=== PATIENT | male | born 1975 | race Hispanic/Latino ===

== ENCOUNTER 2018-04-17 15:08 | Inpatient (IN) | payer BC, OTHER ==
--- NOTE | 2018-04-17 15:48 | ED PDOC ---
Arrival/HPI - General Chief Complaint: Lower Extremity Problem/Injury Historian: Patient - History of Present Illness Narrative History of Present Illness (Text): 04/17/18 15:48 42 year old male whose past medical history includes heart surgery for water around the heart, presents the emergency department complaining of left ankle pain prior to arrival. Patient states he was walking down his driveway when he slipped on ice and twisted his left foot. He notes associated swelling to the ankle. He denies fevers, chills, headache, dizziness, chest pain, shortness of breath, dyspnea on exertion, cough, abdominal pain, nausea, vomiting, diarrhea, back pain, neck pain, or any other complaint. Time/Duration: 1-3 hours Symptom Onset: Gradual Symptom Course: Unchanged Activities at Onset: Light Context: Slipped Past Medical History - Provider Review Nursing Documentation Reviewed: Yes - Infectious Disease Hx of Infectious Diseases: None - Psychiatric Hx Substance Use: No - Surgical History Other/Comment: Buttocks sx for infection. heart sx for water around the heart. - Anesthesia Hx Anesthesia: Yes Hx Anesthesia Reactions: No Family/Social History - Physician Review Nursing Documentation Reviewed: Yes Family/Social History: No Known Family HX Smoking Status: Never Smoked Hx Alcohol Use: No Hx Substance Use: No Allergies/Home Meds Allergies/Adverse Reactions: Allergies No Known Allergies Allergy (Verified 11/24/14 23:28) Review of Systems - Physician Review All systems were reviewed & negative as marked: Yes - Review of Systems Constitutional: absent: Fevers Eyes: absent: Vision Changes Respiratory: absent: SOB, Cough Cardiovascular: absent: Chest Pain Gastrointestinal: absent: Abdominal Pain, Diarrhea, Nausea, Vomiting Musculoskeletal: Other (left ankle pain and swelling). absent: Back Pain, Neck Pain Skin: absent: Rash, Pruritis Physical Exam Vital Signs Reviewed: Yes Vital Signs Temp Pulse Resp BP Pulse Ox 04/17/18 15:35 98.2 F 86 18 181/104 H 100 Temperature: Afebrile Blood Pressure: Hypertensive Pulse: Regular Respiratory Rate: Normal Appearance: Positive for: Well-Appearing, Non-Toxic, Comfortable Pain Distress: None Mental Status: Positive for: Alert and Oriented X 3 - Systems Exam Head: Present: Atraumatic, Normocephalic Pupils: Present: PERRL Extroacular Muscles: Present: EOMI Conjunctiva: Present: Normal Mouth: Present: Moist Mucous Membranes Neck: Present: Normal Range of Motion Respiratory/Chest: Present: Clear to Auscultation, Good Air Exchange. No: Respiratory Distress, Accessory Muscle Use Cardiovascular: Present: Regular Rate and Rhythm, Normal S1, S2. No: Murmurs Abdomen: No: Tenderness, Distention, Peritoneal Signs Back: Present: Normal Inspection Upper Extremity: Present: Normal Inspection. No: Cyanosis, Edema Lower Extremity: Present: NORMAL PULSES (dorsal pedis and posterior tibial pulses intact ), Normal ROM (no pain with dorsal flecion or platar flexion, able to wiggle toes ), Swelling (around the left ankle), Other (no lesions). No: Erythema Neurological: Present: GCS=15, CN II-XII Intact, Speech Normal Skin: Present: Warm, Dry, Normal Color. No: Rashes Psychiatric: Present: Alert, Oriented x 3, Normal Insight, Normal Concentration Medical Decision Making ED Course and Treatment: 04/17/18 15:53 Impression: 42 year old male who presents to the complaining of left ankle pain. Differential Diagnosis included but are not limited to: fracture dislocation sprain Plan: --Labs --CXR --EKG -- Toradol -- Left ankle X-ray -- Reassess and disposition Prior Visits: Notes and results from previous visits were reviewed. Progress Notes: 04/17/18 17:[address] Burgos(orthopedic surgery) who states patient should have be reduced and splinted. He will go to the OR in 24-48 hours for surgical pinning. He requests for patient to be placed in the ortho room. Patient updated on findings and amenable to staying the hospital. Call placed to Dr. Thorne(hospitalist). 04/17/18 18:[address] Thorne who accepts patient onto her service. Dr. Burgos at the bedside who requests consent for moderate sedation while he attempts to reduce the joint. Patient's mother signs consent form is agreeable to procedure. - RAD Interpretation Radiology Orders: 04/17/18 15:47 ANKLE LEFT 3 VIEWS ROUTINE [RAD] Stat - Medication Orders Current Medication Orders: Ketorolac Tromethamine (Toradol) 60 mg IM STAT STA Stop: 04/17/18 15:48 - Scribe Statement The provider has reviewed the documentation as recorded by the Tyree Mcfarlane Provider Scribe Attestation: All medical record entries made by the Scribe were at my direction and personally dictated by me. I have reviewed the chart and agree that the record accurately reflects my personal performance of the history, physical exam, medical decision making, and the department course for this patient. I have also personally directed, reviewed, and agree with the discharge instructions and disposition. Disposition/Present on Arrival - Present on Arrival Any Indicators Present on Arrival: No History of DVT/PE: No History of Uncontrolled Diabetes: No Urinary Catheter: No History of Decub. Ulcer: No History Surgical Site Infection Following: None - Disposition Have Diagnosis and Disposition been Completed?: Yes Diagnosis: Trimalleolar fracture Disposition: HOSPITALIZED Disposition Time: 18:19 Patient Plan: Admission Condition: FAIR Forms: [employer] ([employer])
--- NOTE | 2018-04-17 16:52 | RAD ---
Date of service: 04/17/2018 PROCEDURE: Left ankle three views HISTORY: ankle swelling COMPARISON: TECHNIQUE: Three views FINDINGS: There is a comminuted displaced trimalleolar fracture dislocation. There is a completely displaced and overlapping oblique fracture of the lateral malleolus. There is a displaced transverse fracture of the medial malleolus. There is a minimally displaced fracture of the posterior malleolus. There is complete dislocation of the ankle joint. The talar dome is intact IMPRESSION: As above
[2018-04-17] MEDS ORDERED: Morphine 4 mg/ml ISec IVP STA (17:57)
[2018-04-17] MEDS ORDERED: Propranolol 1 mg/mL Inj IV ONE (17:59)
[2018-04-17] MEDS ORDERED: Propofol 10 mg/ml Inj (20 ML) IVP ONE (18:12)
[2018-04-17 18:36] LABS: BASO # 0.06 K/mm3 (0.0-2.0); BASO % 0.4 % (0.0-3.0); EOS # 0.2 (0.0-0.7); HEMOGLOBIN 15.6 g/dL (14.0-18.0); LYMPH # 3.8 (1.2-3.4); LYMPH % 22.4 % (22.0-35.0); MEAN CELL VOLUME 86.2 fl (80.0-105.0); MEAN CORPUSCULAR HEMOGLOBIN 28.8 pg (25.0-35.0); MEAN CORPUSCULAR HGB CONC 33.4 g/dl (31.0-37.0); MEAN PLATELET VOLUME 9.1 fl (7.0-11.0); MONO # 0.7 (0.1-0.6); MONO % 4.1 % (1.0-6.0); RBC 5.42 10^6/uL (3.5-6.1); RED CELL DISTRIBUTION WIDTH 13.4 % (11.5-14.5); WHITE BLOOD COUNT 16.7 10^3/uL (4.5-11.0)
[2018-04-17 18:47] LABS: ALB/GLOB RATIO 1.3 (1.1-1.8); ALBUMIN 4.7 g/dL (3.0-4.8); ALT/SGPT 52 U/L (7-56); AST/SGOT 56 U/L (17-59); BLOOD UREA NITROGEN 17 mg/dL (7-21); CALCIUM 9.6 mg/dL (8.4-10.5); GFR NON-AFRICAN AMERICAN > 60
[2018-04-17 18:48] LABS: INR 0.99; PARTIAL THROMBOPLASTIN TIME 33.1 Seconds (26.9-38.3)
[2018-04-17 18:55] LABS: TROPONIN I 0.09 ng/mL
--- NOTE | 2018-04-17 19:05 | CP.PCM.HP ---
<Yashira Davey - Last Filed: 04/17/18 21:39> History of Present Illness - History of Present Illness History of Present Illness: Resident History & Physical for Hospitalist Service Patient is a 42 year old male with no significant past medical history presenting with intermittent left lower extremity pain s/p fall this afternoon. Patient states that he slipped on ice while walking in his driveway causing him to twist his left foot. He denies any loss of consciousness or trauma to any other regions. Patient states that he has been unable to weight on his left low er extremity. Pain is described as a throbbing ache localized to his medial malleolus with associated swelling noted. Denies fevers, chills, headache, dizziness, chest pain, shortness of breath, abdominal pain, diarrhea, dysuria. PMH: as above PSH: pericardiocentesis (2009), back abscess drainage SHx: denies alcohol, tobacco, illicit drug use FHx: mother (hypertension) Allergies: NKDA Home meds: none PMD: none Present on Admission - Present on Admission Any Indicators Present on Admission: No Review of Systems - Review of Systems All systems: reviewed and no additional remarkable complaints except (as stated in HPI) Past Patient History - Infectious Disease Hx of Infectious Diseases: None - Past Social History Smoking Status: Never Smoked - PSYCHIATRIC Hx Substance Use: No - SURGICAL HISTORY Other/Comment: Buttocks sx for infection. heart sx for water around the heart. - ANESTHESIA Hx Anesthesia: Yes Hx Anesthesia Reactions: No Meds Allergies/Adverse Reactions: Allergies Allergy/AdvReac Type Severity Reaction Status Date / Time No Known Allergies Allergy Verified 11/24/14 23:28 Physical Exam - Constitutional Appears: Non-toxic, No Acute Distress - Head Exam Head Exam: ATRAUMATIC, NORMOCEPHALIC - Eye Exam Eye Exam: EOMI, Normal appearance, PERRL - ENT Exam ENT Exam: Mucous Membranes Moist - Neck Exam Neck exam: Positive for: Full Rom - Respiratory Exam Respiratory Exam: Clear to Auscultation Bilateral, NORMAL BREATHING PATTERN. absent: Rales, Rhonchi, Wheezes, Respiratory Distress - Cardiovascular Exam Cardiovascular Exam: REGULAR RHYTHM, +S1, +S2 - GI/Abdominal Exam GI & Abdominal Exam: Normal Bowel Sounds, Soft. absent: Distended, Firm, Guarding, Rebound, Tenderness - Extremities Exam Extremities exam: Positive for: normal capillary refill, tenderness, pedal pulses present Additional comments: LLE motor strength and sensation intact - Neurological Exam Neurological exam: Alert, CN II-XII Intact, Oriented x3 - Psychiatric Exam Psychiatric exam: Normal Affect, Normal Mood - Skin Skin Exam: Dry, Intact Results - Vital Signs Recent Vital Signs: Last Vital Signs Temp 98.2 F 04/17/18 15:35 Pulse 86 04/17/18 15:35 Resp 18 04/17/18 15:35 BP 181/104 H 04/17/18 15:35 Pulse Ox 100 04/17/18 15:35 - Labs Result Diagrams: 04/17/18 20:50 04/17/18 18:25 Labs: Laboratory Results - last 24 hr 04/17/18 04/17/18 04/17/18 18:25 18:25 18:25 WBC 16.7 H RBC 5.42 Hgb 15.6 Hct 46.7 MCV 86.2 MCH 28.8 MCHC 33.4 RDW 13.4 Plt Count 365 MPV 9.1 Neut % (Auto) 72.1 H Lymph % (Auto) 22.4 [place] % (Auto) 4.1 Eos % (Auto) 1.0 L Baso % (Auto) 0.4 Lymph # (Auto) 3.8 H [place] # (Auto) 0.7 H Eos # (Auto) 0.2 Baso # (Auto) 0.06 Absolute Neuts (auto) 12.08 H PT 11.0 INR 0.99 APTT 33.1 Sodium 140 Potassium 4.3 Chloride 106 Carbon Dioxide 22 Anion Gap 16 BUN 17 Creatinine 0.7 L Est GFR ( Amer) > 60 Est GFR (Non-Af Amer) > 60 Random Glucose 108 Calcium 9.6 Magnesium 2.3 H Total Bilirubin 0.3 AST 56 ALT 52 Alkaline Phosphatase 139 H Troponin I 0.09 Total Protein 8.5 H Albumin 4.7 Globulin 3.8 Albumin/Globulin Ratio 1.3 Assessment & Plan - Assessment and Plan (Free Text) Assessment: Patient is a 42 year old male with no significant past medical history presenting with intermittent left lower extremity pain s/p fall this afternoon, found to have trimalleolar fracture. Plan: Trimalleolar fracture - x-ray shows comminuted displaced trimalleolar fracture - type and cross - orthopedic surgery consulted - Toradol PRN for pain - NS @ 100 ccs/hr - NPO - CXR - EKG PPX - Protonix Case discussed with Dr. Nathaniel Davey PGY-1 - Date & Time Date: 04/17/18 Time: 19:05 <Clayton Armstrong - Last Filed: 04/18/18 08:01> Results - Vital Signs Recent Vital Signs: Last Vital Signs Temp 98.1 F 04/18/18 06:08 Pulse 84 04/18/18 06:08 Resp 20 04/18/18 06:08 BP 162/101 H 04/18/18 06:08 Pulse Ox 98 04/18/18 06:08 - Labs Result Diagrams: 04/18/18 00:45 04/18/18 07:00 Labs: Laboratory Results - last 24 hr 04/17/18 04/17/18 04/17/18 18:25 18:25 18:25 WBC 16.7 H RBC 5.42 Hgb 15.6 Hct 46.7 MCV 86.2 MCH 28.8 MCHC 33.4 RDW 13.4 Plt Count 365 MPV 9.1 Neut % (Auto) 72.1 H Lymph % (Auto) 22.4 [place] % (Auto) 4.1 Eos % (Auto) 1.0 L Baso % (Auto) 0.4 Lymph # (Auto) 3.8 H [place] # (Auto) 0.7 H Eos # (Auto) 0.2 Baso # (Auto) 0.06 Absolute Neuts (auto) 12.08 H PT 11.0 INR 0.99 APTT 33.1 Sodium 140 Potassium 4.3 Chloride 106 Carbon Dioxide 22 Anion Gap 16 BUN 17 Creatinine 0.7 L Est GFR ( Amer) > 60 Est GFR (Non-Af Amer) > 60 Random Glucose 108 Calcium 9.6 Phosphorus Magnesium 2.3 H Total Bilirubin 0.3 AST 56 ALT 52 Alkaline Phosphatase 139 H Troponin I 0.09 Total Protein 8.5 H Albumin 4.7 Globulin 3.8 Albumin/Globulin Ratio 1.3 Blood Type Blood Type Confirm Antibody Screen Crossmatch BBK History Checked 04/17/18 04/17/18 04/17/18 20:30 20:50 21:15 WBC 17.3 H RBC 4.83 Hgb 13.8 L Hct 41.5 L MCV 85.9 MCH 28.6 MCHC 33.3 RDW 13.3 Plt Count 324 MPV 8.8 Neut % (Auto) 70.6 H Lymph % (Auto) 23.0 [place] % (Auto) 5.0 Eos % (Auto) 1.2 L Baso % (Auto) 0.2 Lymph # (Auto) 4.0 H [place] # (Auto) 0.9 H Eos # (Auto) 0.2 Baso # (Auto) 0.04 Absolute Neuts (auto) 12.19 H PT INR APTT Sodium Potassium Chloride Carbon Dioxide Anion Gap BUN Creatinine Est GFR ( Amer) Est GFR (Non-Af Amer) Random Glucose Calcium Phosphorus Magnesium Total Bilirubin AST ALT Alkaline Phosphatase Troponin I Total Protein Albumin Globulin Albumin/Globulin Ratio Blood Type O POSITIVE Blood Type Confirm O POSITIVE Antibody Screen Negative Crossmatch See Detail BBK History Checked No verified bt 04/18/18 04/18/18 04/18/18 00:25 00:45 07:00 WBC 16.5 H RBC 4.87 Hgb 13.9 L Hct 41.8 L MCV 85.8 MCH 28.5 MCHC 33.3 RDW 13.5 Plt Count 329 MPV 9.0 Neut % (Auto) 66.5 Lymph % (Auto) 25.4 [place] % (Auto) 6.0 Eos % (Auto) 1.8 Baso % (Auto) 0.3 Lymph # (Auto) 4.2 H [place] # (Auto) 1.0 H Eos # (Auto) 0.3 Baso # (Auto) 0.05 Absolute Neuts (auto) 11.01 H PT INR APTT Sodium 139 Potassium 4.0 Chloride 106 Carbon Dioxide 26 Anion Gap 11 BUN 15 Creatinine 0.6 L Est GFR ( Amer) > 60 Est GFR (Non-Af Amer) > 60 Random Glucose 102 Calcium 9.0 Phosphorus 3.5 Magnesium 2.1 Total Bilirubin 0.6 AST 52 ALT 44 Alkaline Phosphatase 131 H Troponin I 0.25 H* D Total Protein 7.2 Albumin 4.1 Globulin 3.2 Albumin/Globulin Ratio 1.3 Blood Type Blood Type Confirm Antibody Screen Crossmatch BBK History Checked Attending/Attestation - Attestation I have personally seen and examined this patient.: Yes I have fully participated in the care of the patient.: Yes I have reviewed all pertinent clinical information: Yes Notes (Text): 04/18/18 07:56 Patient was seen when he was in bed # 269-02. Medical record was reviewed. Agree with history,physical examination, assessment and plan. His blood pressure was 161/108, repeat one was 179/114. He denied chest pain, sob, nausea,vomiting, palpitation, sweating. Stated that he fell on ice,early afternoon, between 1-2 PM. States that fluid was drained from around his heart when he was 31 year old, when he was admitted to [facility].S States that he had surgery for infection in skin or bone in right hip about 11 years ago. Uses alcohol occasionally. States that he had left arm fracture two times in the past.
[2018-04-17 21:01] LABS: BASO # 0.04 K/mm3 (0.0-2.0); BASO % 0.2 % (0.0-3.0); EOS # 0.2 (0.0-0.7); EOS % 1.2 % (1.5-5.0); HEMOGLOBIN 13.8 g/dL (14.0-18.0); MEAN CELL VOLUME 85.9 fl (80.0-105.0); MEAN CORPUSCULAR HEMOGLOBIN 28.6 pg (25.0-35.0); MEAN CORPUSCULAR HGB CONC 33.3 g/dl (31.0-37.0); MEAN PLATELET VOLUME 8.8 fl (7.0-11.0); MONO # 0.9 (0.1-0.6); RBC 4.83 10^6/uL (3.5-6.1); RED CELL DISTRIBUTION WIDTH 13.3 % (11.5-14.5); WHITE BLOOD COUNT 17.3 10^3/uL (4.5-11.0)
[2018-04-17] MEDS: Sodium Chloride 0.9% 1,000 ML IV SCH (23:30)
[2018-04-18 01:19] LABS: BASO # 0.05 K/mm3 (0.0-2.0); BASO % 0.3 % (0.0-3.0); EOS # 0.3 (0.0-0.7); EOS % 1.8 % (1.5-5.0); HEMOGLOBIN 13.9 g/dL (14.0-18.0); LYMPH # 4.2 (1.2-3.4); LYMPH % 25.4 % (22.0-35.0); MEAN CELL VOLUME 85.8 fl (80.0-105.0); MEAN CORPUSCULAR HEMOGLOBIN 28.5 pg (25.0-35.0); MEAN CORPUSCULAR HGB CONC 33.3 g/dl (31.0-37.0); RBC 4.87 10^6/uL (3.5-6.1); RED CELL DISTRIBUTION WIDTH 13.5 % (11.5-14.5); WHITE BLOOD COUNT 16.5 10^3/uL (4.5-11.0)
--- NOTE | 2018-04-18 02:23 | CON ---
DATE: 04/17/2018 ORTHOPEDIC CONSULTATION REPORT AND PROCEDURE REPORT HISTORY OF PRESENT ILLNESS: The patient is a 42-year-old male seen in the emergency room approximately at 6.30 p.m. with displaced fracture and dislocation of his left ankle trimalleolar type from an accident at home with a large abrasion in the medial malleolus. The patient has a completely displaced lateral dislocation with med and post displaced fractures to the tibia, short oblique fracture of distal fibula, and high medial malleolar fracture. So, we hung up the patient with traction on the toes to reduce as best as possible, after cleaning the wounds with Betadine and covering the pressure points with Xeroform and well-padded cast and did a close reduction as we hung the big toe and second toe to try to reduce dislocation as best as possible. We did not have a good conscious sedation. So, post-reduction x-ray shows 50% improvement of the fracture dislocation position. the talus is under the tibia, but still wide mortise, so we are going for formal ORIF when the swelling goes down,wrinkle sign is present. Right now, we will put him in an external fixator transarticular in the OR tomorrow or the next day and go from there and wait for 10 days for the swelling to go down and do a formal open reduction and internal fixation after we get a CAT scan. So, we will admit the patient for close observation and I will see him tomorrow and make a decision when to do that surgery and if the swelling goes down, we will put a transarticular external fixator on. I told him he is going to have stiff ankle from arthritis and would not be able to go to work for 3 to 4 months.will try to do the trans articuler fram on this saturday. Easton Burgos DO [facility]
[2018-04-18] MEDS ORDERED: Nitroglycerin 2% Ointment Foilpak UD TOP STA (03:47)
[2018-04-18] MEDS ORDERED: Metoprolol 1 mg/ml Inj IVP STA (03:59)
[2018-04-18] MEDS ORDERED: Heparin25000 units/250ml 1/2NS 25,000 UNITS/250 ML BAG IV SCH (04:00)
[2018-04-18] MEDS: Sodium Chloride 0.9% 1,000 ML IV SCH ×2 (07:10→18:35)
[2018-04-18 07:15] VITALS: BMI 27.6
--- NOTE | 2018-04-18 07:21 | CP.PCM.PN ---
<Yashira Davey L - Last Filed: 04/18/18 13:35> Subjective - Date & Time of Evaluation Date of Evaluation: 04/18/18 Time of Evaluation: 07:21 - Subjective Subjective: Resident Progress Note for Hospitalist Service Patient examined at bedside. Patient noted to have elevated troponins overnight an was started on heparin drip. This morning patient admits to intermittent left lower extremity pain in region of medial malleolus unchanged from prior. Denies chest pain, shortness of breath, diaphoresis. Tolerating liquid diet with no nausea, vomiting, or abdominal pain. Objective - Vital Signs/Intake and Output Vital Signs (last 24 hours): Temp Pulse Resp BP Pulse Ox 98.1 F 84 20 162/101 H 98 04/18/18 06:08 04/18/18 06:08 04/18/18 06:08 04/18/18 06:08 04/18/18 06:08 - Medications Medications: Current Medications Atorvastatin Calcium (Lipitor) 40 mg PO DIN [facility] Last Admin: 04/18/18 04:34 Dose: 40 mg Sodium Chloride (Sodium Chloride 0.9%) 1,000 mls @ 100 mls/hr IV .Q10H [facility] Last Admin: 04/18/18 07:10 Dose: Not Given Heparin Sodium/Sodium Chloride (Heparin 47152 Units/250ml 1/2 Normal Saline) 25,000 units in 250 mls @ 8.165 mls/hr IV .Q24H [facility]; Protocol Last Admin: 04/18/18 04:32 Dose: 12 units/kg/hr, 8.165 mls/hr Ketorolac Tromethamine (Toradol) 15 mg IVP Q6H PRN PRN Reason: Pain, moderate (4-7) Metoprolol Tartrate (Lopressor) 25 mg PO BID [facility] - Labs Labs: 04/18/18 00:45 04/17/18 18:25 PT 11.0 SECONDS (9.4-12.5) 04/17/18 18:25 INR 0.99 04/17/18 18:25 APTT 33.1 Seconds (26.9-38.3) 04/17/18 18:25 - Additional Findings Additional findings: - Constitutional Appears: Non-toxic, No Acute Distress - Head Exam Head Exam: ATRAUMATIC, NORMOCEPHALIC - Eye Exam Eye Exam: EOMI, Normal appearance, PERRL - ENT Exam ENT Exam: Mucous Membranes Moist - Neck Exam Neck exam: Positive for: Full Rom - Respiratory Exam Respiratory Exam: Clear to Auscultation Bilateral, NORMAL BREATHING PATTERN. absent: Rales, Rhonchi, Wheezes, Respiratory Distress - Cardiovascular Exam Cardiovascular Exam: REGULAR RHYTHM, +S1, +S2 - GI/Abdominal Exam GI & Abdominal Exam: Normal Bowel Sounds, Soft. absent: Distended, Firm, Guarding, Rebound, Tenderness - Extremities Exam Extremities exam: Positive for: normal capillary refill, tenderness, pedal pulses present Additional comments: LLE motor strength and sensation intact - Neurological Exam Neurological exam: Alert, CN II-XII Intact, Oriented x3 - Psychiatric Exam Psychiatric exam: Normal Affect, Normal Mood - Skin Skin Exam: Dry, Intact Assessment and Plan - Assessment and Plan (Free Text) Assessment: Patient is a 42 year old male with no significant past medical history presenting with intermittent left lower extremity pain s/p fall this afternoon, found to have trimalleolar fracture. Plan: NSTEMI - Troponins elevated x2 - EKG shows normal sinus rhythm - heparin drip after heparin bolus - ASA 81 mg PO daily - Lipitor 40 mg daily - Metoprolol 25 mg PO BID Trimalleolar fracture - x-ray shows comminuted displaced trimalleolar fracture - orthopedic surgery consulted - s/p partial reduction - plan for ORIF when patient stable - type and cross - Toradol PRN for pain - NS @ 100 ccs/hr - CXR shows no active disease PPX - Protonix, heparin drip Case discussed with Dr. Mati Davey PGY-1 <Sherry Thorne R - Last Filed: 04/19/18 18:46> Objective - Vital Signs/Intake and Output Vital Signs (last 24 hours): Temp Pulse Resp BP Pulse Ox 98.8 F 88 18 159/102 H 99 04/18/18 18:00 04/18/18 18:45 04/18/18 18:45 04/18/18 18:45 04/18/18 18:00 - Labs Labs: 04/18/18 00:45 04/18/18 07:00 PT 11.0 SECONDS (9.4-12.5) 04/17/18 18:25 INR 0.99 04/17/18 18:25 APTT 51.6 Seconds (26.9-38.3) H 04/18/18 09:08 Attending/Attestation - Attestation I have personally seen and examined this patient.: Yes I have fully participated in the care of the patient.: Yes I have reviewed all pertinent clinical information, including history, physical exam and plan: Yes Notes (Text): Patient seen and examined by me with resident at 9:20 AM on 04/18/18. Case including HPI, physical exam, and assessment and plan discussed with resident. Agree with above with following additions/corrections. Patient is a 42-year-old male with past medical history significant for developmental delay and pericardiocentesis that presented to the emergency room with intermittent left lower extremity pain after having a fall. Patient states he is feeling ok. Complains of some pain in his left lower extremity. Patient denies any chest pain or palpitations. No dysuria. No headaches or dizziness. No fevers or chills. No nausea, vomiting, or abdominal pain. No diarrhea or constipation. Physical exam: General: Awake and alert sitting up in bed in no acute distress HEENT: Normocephalic, atraumatic. Extraocular muscles intact, pupils equal and reactive, no scleral icterus. Oropharynx is pink moist. No pharyngeal erythema or exudate appreciated. Neck is supple. Cardiovascular: Regular rhythm. Normal S1 and S2. No murmurs, rubs, or gallops appreciated Pulmonary: Normal respiratory effort. No rhonchi, rales, or wheezing appreciated. Gastrointestinal: Soft, nondistended. Nontender. Positive bowel sounds all 4 quadrants. No guarding. Musculoskeletal: Moves all extremities. Left lower extremity with cast in place. Central nervous system: AAOx3 Dermatologic: Skin warm and dry. Assessment and plan: Patient is a 42-year-old male with past medical history significant for developmental delay and pericardiocentesis that presented to the emergency room with intermittent left lower extremity pain after having a fall. 1. NSTEMI. CAD. Elevated troponins. Patient was started on a heparin drip. Patient is status post cardiac catheterization which per software project lead showed triple-vessel disease requiring CABG. Patient to be transferred to [facility]. Continue aspirin, Lipitor, and metoprolol. 2-D echo per software project lead showed left ventricle is normal size, normal left ventricular wall thickness, left ventricle systolic function is borderline, significant regional wall motion abnormalities noted, tissue Doppler imaging reveals mild left ventricular diastolic dysfunction, atrial regurgitation is moderate. 2. Trimalleolar left ankle fracture. S/P fall. Initial left ankle x-ray on admission per radiologist showed comminuted displaced trimalleolar fracture dislocation; there is completely displaced and overlapping oblique fracture of the lateral malleolus; there is displaced transverse fracture of the medial malleolus; there is minimally displaced fracture of the posterior malleolus; there is complete dislocation of the ankle joint; the talar dome is intact. Orthopedics following, recommendations appreciated. Patient had partial reduction done in the ED with orthopedics. Repeat left ankle x-ray per radiologist showed there is trimalleolar fracture dislocation of the left ankle, no significant change in alignment. Continue with pain management. Case was discussed at length with orthopedics and anesthesia. Patient is not a candidate currently for generalized anesthesia secondary to [place] and need for CABG. Per anesthesia Dr. Olmstead and orthopedics Dr. Burgos, patient should be transferred to [facility] for CABG. Patient will need to be seen by orthopedic surgeon while there. Case was discussed in detail with patient regarding current diagnosis and treatment plan. All questions answered.
[2018-04-18 07:53] LABS: ALB/GLOB RATIO 1.3 (1.1-1.8); ALBUMIN 4.1 g/dL (3.0-4.8); ALT/SGPT 44 U/L (7-56); AST/SGOT 52 U/L (17-59); BLOOD UREA NITROGEN 15 mg/dL (7-21); GFR NON-AFRICAN AMERICAN > 60
[2018-04-18 08:10] LABS: TROPONIN I 0.34 ng/mL
--- NOTE | 2018-04-18 09:34 | RAD ---
Date of service: 04/17/2018 HISTORY: sob COMPARISON: No prior. FINDINGS: LUNGS: No active pulmonary disease. PLEURA: No significant pleural effusion identified, no pneumothorax apparent. CARDIOVASCULAR: No aortic atherosclerotic calcification present. Mild cardiomegaly. No pulmonary vascular congestion. OSSEOUS STRUCTURES: No significant abnormalities. VISUALIZED UPPER ABDOMEN: Normal. OTHER FINDINGS: None. IMPRESSION: No active disease.
--- NOTE | 2018-04-18 09:36 | RAD ---
Date of service: 04/17/2018 HISTORY: pre op COMPARISON: Earlier same day FINDINGS: LUNGS: No active pulmonary disease. PLEURA: No significant pleural effusion identified, no pneumothorax apparent. CARDIOVASCULAR: No aortic atherosclerotic calcification present. Moderate cardiomegaly no pulmonary vascular congestion. OSSEOUS STRUCTURES: No significant abnormalities. VISUALIZED UPPER ABDOMEN: Normal. OTHER FINDINGS: None. IMPRESSION: No active disease.
[2018-04-18 09:57] LABS: PARTIAL THROMBOPLASTIN TIME 51.6 Seconds (26.9-38.3)
--- NOTE | 2018-04-18 10:22 | RAD ---
Date of service: 04/17/2018 PROCEDURE: Left ankle HISTORY: post reduction COMPARISON: TECHNIQUE: Four views FINDINGS: There is a trimalleolar fracture dislocation of the left ankle. There is no significant change in alignment. IMPRESSION: There is a trimalleolar fracture dislocation of the left ankle. There is no significant change in alignment.
--- NOTE | 2018-04-18 10:58 | CARD ---
APPROVED REPORT Date of service: 04/17/2018 EKG Measurement Heart [id number] <Conclusion> Poor data quality, interpretation may be adversely affected Normal sinus rhythm
--- NOTE | 2018-04-18 12:15 | PN ---
DATE: 04/18/2018 ORTHOPEDIC REPORT SUBJECTIVE: A 42-year-old male in 269, bed 2. We were ready to do close reduction and application of transarticular external fixator today, but cardiac doctor said to hold the surgery because he may develop a heart attack, so we just had to go day by day. He has no undo pain, and the left ankle is too swollen to do a formal ORIF, so I had to temporize by putting him in a transarticular external fixator to allow the swelling to go down and to watch his skin condition and make sure he does not develop blisters and he had a shallow abrasion on the medial side of that left ankle. He does have a trimalleolar fracture. We got a 50% reduction in the ER yesterday, but he needs temporizing procedure of external fixator to allow the swelling to go down and to do a formal ORIF when he gets a wrinkle sign and all of the swelling is down. Family was spoken to today, his mother and we will follow him closely and go back once he is stable medically. . In the meantime, I will elevate the leg and he can get up, out of bed. Easton Burgos DO MTDHannah
[2018-04-18] MEDS ORDERED: Lidocaine PF 2% (5 ml) Inj (For Cardiac Arrhy) ONE (13:01)
[2018-04-18] MEDS ORDERED: Iodixanol 320 MG/ML 200 ML BOTTLE IV ONE (13:01)
[2018-04-18] MEDS ORDERED: Midazolam 2 MG/2 ML VIAL ONE ×2 (13:14→13:19)
--- NOTE | 2018-04-18 13:17 | CON ---
DATE: 04/18/2018 CARDIOLOGY CONSULTATION HISTORY OF PRESENT ILLNESS: The patient is a 42-year-old developmentally delayed, has a vague cardiac history. He stated that he had some fluid taken out to his heart in the past. The patient's mother is not available for further history taking. The patient sustained a fall on ice and presented because of ankle swelling. The patient denies any chest pain or shortness of breath. His troponin was borderline elevated. SOCIAL HISTORY: Nonsmoker, nondrinker. Lives with his mom. MEDICATIONS: Aspirin 81 mg once a day, intravenous heparin infusion and therapeutic regimen for acute coronary syndrome, Lipitor 40 mg once a day, Lopressor 25 mg once a day, Toradol 50 mL intravenously every 6 hours. REVIEW OF SYSTEMS: No dizziness or syncope. No headache. No fever or chills. PHYSICAL EXAMINATION: GENERAL: The patient is a middle-aged male, who does not appear to be in acute distress. VITAL SIGNS: Blood pressure 141/98, heart rate 92, temperature 98.5, respirations 20. HEENT: No pallor. NECK: No JVD. CHEST: Clear. HEART: S1 and S2 regular. EXTREMITIES: No edema. LABORATORY DATA: Today's hemoglobin and hematocrit 15.9 and 41.8, white count 16.5, platelet count 329,000. Today's SMA-7 is within normal limits except for creatinine 0.6. Troponin was 0.09, 0.25, and 0.34. D-dimer 650. EKG revealed normal sinus rhythm at a rate of 84. The first EKG revealed sinus rhythm; however, it had arm lead reversal. Left ankle x-ray revealed trimalleolar fracture dislocation of the left ankle. No significant changes in alignment. Chest x-ray, no active disease. ASSESSMENT: 1. Status post fall and trimalleolar left ankle fracture. 2. Questionable history suggestive of pericardial effusion. 3. Borderline troponin elevation. RECOMMENDATIONS: Continue aspirin, therapeutic intravenous heparin, Lipitor, and Lopressor. Cardiac catheterization is indicated and at this time I am awaiting arrival of the patient's mother to discuss the case and obtain a consent. If coronary angiography is negative, I will proceed with chest CT angio to rule out pulmonary embolus. Kp MD [facility] # [id number]
[2018-04-18 15:02] VITALS: RESP 18
--- NOTE | 2018-04-18 16:08 | CARDCATH ---
PROCEDURE DATE: 04/18/2018 HISTORY: The patient is a 42-year-old male with a history of a learning disability who fell on ice. His troponins were borderline elevated consistent with a non-STEMI. I was asked by Dr. Goodwin to do a catheterization on the patient. PROCEDURE: Left heart catheterization with coronary angiography and left ventriculogram. The right femoral artery was cannulated with 6-Croatian sheath. There were no complications. I performed moderate sedation which included the presence of an independent trained observer that assisted in monitoring the patient's level of consciousness and physiologic status. After administration of Versed and fentanyl, my intra service time was 15 minutes. Findings on catheterization revealed left ventricle that was mildly global hypokinetic, EF could not be obtained, but estimated ejection fraction was approximately 45% to 50%. His coronary anatomy revealed a right dominant circulation. The RCA is occluded in its proximal portion with recannulization further down in the PDA. The left main artery revealed diffuse intimal irregularities with nonobstructive disease. The LAD revealed a 90% stenosis in its midportion and a 90% stenosis in the apical portion. The circumflex artery revealed multiple critical lesions. Angio-Seal was used to close the femoral artery site. The patient tolerated the procedure well. In summary, the procedure revealed triple-vessel CAD. Mild LV hypokinesis with an EF of 45% to 50%. Given these findings, the patient is referred for [facility] for coronary bypass surgery. I have discussed with the care team, they will need to coordinate with Orthopedics as well as anesthesia to see whether surgery is necessary immediately of his foot. If so, he will need to have that done with increased risk with local anesthesia. The team will speak with Orthopedics and make some clinical decisions. Mohsen Bond MD
--- NOTE | 2018-04-18 16:14 | CARD ---
APPROVED REPORT Date of service: 04/18/2018 EKG Measurement Heart [id number] <Conclusion> Normal sinus rhythm Cannot rule out Inferior infarct, age undetermined Abnormal ECG
--- NOTE | 2018-04-18 16:25 | PN ---
DATE: 04/18/2018 SUBJECTIVE: The patient had triple-vessel disease detected on the cardiac catheterization today in [place]. It is approximately 2:40 p.m., he is going to be going to [facility] for open heart surgery for bypass and that he will probably be getting an orthopedic consult on his left ankle fracture dislocation at [facility], so the surgery has to be delayed because he is on blood thinners and needs emergent open heart surgery and he has to be put in an external fixator after the cardiac cath, he has no undue pain in the ankle. He has some protection of the splint for the displaced fracture. he should be followed at the facility in [facility] back to [place], I would be glad to take care of him after the open heart surgery, so we have to delay the open reduction internal fixation and the external fixation at that left ankle until the cardiac status is improved. He is going to [place] soon for the bypass surgery. Easton Burgos DO MTDHannah
--- NOTE | 2018-04-18 17:13 | CARD ---
APPROVED REPORT Date of service: 04/18/2018 EXAM: Two-dimensional and M-mode echocardiogram with Doppler and color Doppler. INDICATION FL 2D DIMENSIONS IVSd1.2 (0.7-1.1cm)LVDd4.7 (3.9-5.9cm) PWd1.0 (0.7-1.1cm)LVDs3.5 (2.5-4.0cm) FS (%) 25.5 %LVEF (%)50.1 (>50%) M-Mode DIMENSIONS Aortic Root3.00 (2.2-3.7cm)Aortic Cusp Exc.1.40 (1.5-2.0cm) Aortic Valve AoV Peak Zjmczdbv969.0cm/Johnny Peak GR.10mmHg Mitral Valve MV E Bqrwgaol297.0cm/sMV A Imuylewj927.0cm/sE/A ratio1.0 TDI Lateral E' Peak V13.00cm/sMedial E' Peak V8.48cm/sE/Lateral E'9.1 E/Medial E'13.9 Pulmonary Valve PV Peak Wgjzvuxr67.1cm/sPV Peak Grad.2mmHg Tricuspid Valve TR Peak Knhzluai895td/sRAP IOSWLASZ58flPwMW Peak Gr.8mmHg OORI94hyMv LEFT VENTRICLE The left ventricle is normal size. There is normal left ventricular wall thickness. Left ventricle systolic function is borderline. Significant regional wall motion abnormalities noted. Tissue Doppler imaging reveals mild left ventricular diastolic dysfunction. No left ventricle thrombus noted on this study. RIGHT VENTRICLE The right ventricle is normal size. There is normal right ventricular wall thickness. The right ventricular systolic function is normal. ATRIA The left atrium size is normal. AORTIC VALVE The aortic valve is not well visualized. No aortic regurgitation is present. There is no aortic valvular stenosis. MITRAL VALVE The mitral valve is not well visualized. Mitral regurgitation is moderate. There is no mitral valve stenosis. TRICUSPID VALVE There is trace tricuspid regurgitation. PULMONIC VALVE The pulmonary valve is normal in structure. There is no pulmonic valvular regurgitation. GREAT VESSELS The aortic root is normal in size. The IVC is normal in size and collapses >50% with inspiration. PERICARDIAL EFFUSION There is no pericardial effusion. <Conclusion> The left ventricle is normal size. There is normal left ventricular wall thickness. Left ventricle systolic function is borderline. Significant regional wall motion abnormalities noted. Tissue Doppler imaging reveals mild left ventricular diastolic dysfunction. Mitral regurgitation is moderate.
[2018-04-18 18:24] VITALS: TEMP 98.8; O2SAT 99
[2018-04-18 18:41] VITALS: PULSE 88
[2018-04-18 19:25] VITALS: BP 159/102
--- NOTE | 2018-04-19 06:54 | CP.PCM.DIS ---
Provider - Provider Date of Admission: 04/17/18 18:13 Attending physician: Sherry Thorne DO Consults: 04/17/18 18:14 Physician Consult Stat Comment: Consulting Provider: Easton Burgos Consulting Physician: Easton Burgos Reason for Consult: trimalleolar fracture 04/17/18 23:29 Physician Consult Routine Comment: Consulting Provider: Kp Goodwin Consulting Physician: Kp Goodwin Reason for Consult: Cardiac clearance 04/18/18 08:25 Nursing Referral for Wound Care Routine Comment: Physician Instructions: preparing for surg when med cleared Reason For Exam: keep lt ankle elevated can be oob no wt on lt leg Time Spent in preparation of Discharge (in minutes): 35 Diagnosis - Discharge Diagnosis (1) Trimalleolar fracture Status: Acute (2) Triple vessel coronary artery disease Status: Acute Hospital Course - Lab Results Lab Results: Most Recent Lab Values WBC 16.5 10^3/uL (4.5-11.0) H 04/18/18 00:45 RBC 4.87 10^6/uL (3.5-6.1) 04/18/18 00:45 Hgb 13.9 g/dL (14.0-18.0) L 04/18/18 00:45 Hct 41.8 % (42.0-52.0) L 04/18/18 00:45 MCV 85.8 fl (80.0-105.0) 04/18/18 00:45 MCH 28.5 pg (25.0-35.0) 04/18/18 00:45 MCHC 33.3 g/dl (31.0-37.0) 04/18/18 00:45 RDW 13.5 % (11.5-14.5) 04/18/18 00:45 Plt Count 329 10^3/uL (120.0-450.0) 04/18/18 00:45 MPV 9.0 fl (7.0-11.0) 04/18/18 00:45 Neut % (Auto) 66.5 % (50.0-68.0) 04/18/18 00:45 Lymph % (Auto) 25.4 % (22.0-35.0) 04/18/18 00:45 Glenn % (Auto) 6.0 % (1.0-6.0) 04/18/18 00:45 Eos % (Auto) 1.8 % (1.5-5.0) 04/18/18 00:45 Baso % (Auto) 0.3 % (0.0-3.0) 04/18/18 00:45 Lymph # (Auto) 4.2 (1.2-3.4) H 04/18/18 00:45 Glenn # (Auto) 1.0 (0.1-0.6) H 04/18/18 00:45 Eos # (Auto) 0.3 (0.0-0.7) 04/18/18 00:45 Baso # (Auto) 0.05 K/mm3 (0.0-2.0) 04/18/18 00:45 Absolute Neuts (auto) 11.01 (1.4-6.5) H 04/18/18 00:45 PT 11.0 SECONDS (9.4-12.5) 04/17/18 18:25 INR 0.99 04/17/18 18:25 APTT 51.6 Seconds (26.9-38.3) H 04/18/18 09:08 D-Dimer, Quantitative 620 ng/mlDDU (0-243) H 04/18/18 09:08 Sodium 139 mmol/L (132-148) 04/18/18 07:00 Potassium 4.0 mmol/L (3.6-5.0) 04/18/18 07:00 Chloride 106 mmol/L (98-107) 04/18/18 07:00 Carbon Dioxide 26 mmol/L (21-33) 04/18/18 07:00 Anion Gap 11 (10-20) 04/18/18 07:00 BUN 15 mg/dL (7-21) 04/18/18 07:00 Creatinine 0.6 mg/dl (0.8-1.5) L 04/18/18 07:00 Est GFR ( Amer) > 60 04/18/18 07:00 Est GFR (Non-Af Amer) > 60 04/18/18 07:00 Random Glucose 102 mg/dL (70-110) 04/18/18 07:00 Calcium 9.0 mg/dL (8.4-10.5) 04/18/18 07:00 Phosphorus 3.5 mg/dL (2.5-4.5) 04/18/18 07:00 Magnesium 2.1 mg/dL (1.7-2.2) 04/18/18 07:00 Total Bilirubin 0.6 mg/dL (0.2-1.3) 04/18/18 07:00 AST 52 U/L (17-59) 04/18/18 07:00 ALT 44 U/L (7-56) 04/18/18 07:00 Alkaline Phosphatase 131 U/L (38-126) H 04/18/18 07:00 Troponin I 0.34 ng/mL H* D 04/18/18 07:00 Total Protein 7.2 g/dL (5.8-8.3) 04/18/18 07:00 Albumin 4.1 g/dL (3.0-4.8) 04/18/18 07:00 Globulin 3.2 gm/dL 04/18/18 07:00 Albumin/Globulin Ratio 1.3 (1.1-1.8) 04/18/18 07:00 Blood Type O POSITIVE 04/17/18 20:30 Blood Type Confirm O POSITIVE 04/17/18 21:15 Antibody Screen Negative 04/17/18 20:30 Crossmatch See Detail 04/17/18 20:30 BBK History Checked No verified bt 04/17/18 20:30 - Hospital Course Hospital Course: On admission: Patient is a 42 year old male with no significant past medical history presenting with intermittent left lower extremity pain s/p fall this afternoon. Patient states that he slipped on ice while walking in his driveway causing him to twist his left foot. He denies any loss of consciousness or trauma to any other regions. Patient states that he has been unable to weight on his left lower extremity. Pain is described as a throbbing ache localized to his medial malleolus with associated swelling noted. Denies fevers, chills, headache, dizziness, chest pain, shortness of breath, abdominal pain, diarrhea, dysuria. During hospital stay: Patient was noted to have a trimalleolar fracture have x- ray. Orthopedic surgery was consulted. Patient underwent partial reduction in ED. Patient was started on IV fluids and given for pain. Overnight, patient was noted to have elevated troponins. EKG showed sinus rhythm. Patient was started on heparin drip, aspirin, lipitor, metoprolol. Cardiology was consulted. ECHO was done which showed 50% EF< significant regional wall motion abnormalities. Patient underwent cardiac cath which revealed triple vessel CAD. Transfer to [facility] was arranged for CABG and patient was optimized for discharge. Discharge Exam - Additional Findings Additional findings: - Constitutional Appears: Non-toxic, No Acute Distress - Head Exam Head Exam: ATRAUMATIC, NORMOCEPHALIC - Eye Exam Eye Exam: EOMI, Normal appearance, PERRL - ENT Exam ENT Exam: Mucous Membranes Moist - Neck Exam Neck exam: Positive for: Full Rom - Respiratory Exam Respiratory Exam: Clear to Auscultation Bilateral, NORMAL BREATHING PATTERN. absent: Rales, Rhonchi, Wheezes, Respiratory Distress - Cardiovascular Exam Cardiovascular Exam: REGULAR RHYTHM, +S1, +S2 - GI/Abdominal Exam GI & Abdominal Exam: Normal Bowel Sounds, Soft. absent: Distended, Firm, Guardi ng, Rebound, Tenderness - Extremities Exam Extremities exam: Positive for: normal capillary refill, tenderness, pedal pulses present Additional comments: LLE motor strength and sensation intact - Neurological Exam Neurological exam: Alert, CN II-XII Intact, Oriented x3 - Psychiatric Exam Psychiatric exam: Normal Affect, Normal Mood - Skin Skin Exam: Dry, Intact Discharge Plan - Follow Up Plan Condition: FAIR Disposition: Trans to Other Acute Care Hosp Instructions: Coronary Heart Disease, Ankle Fracture, Cardiac Catheterization, Heart Healthy Diet Additional Instructions: Patient will be followed up at [facility].
--- NOTE | 2018-04-21 08:23 | CARD ---
APPROVED REPORT Date of service: 04/18/2018 EKG Measurement Heart [id number] <Conclusion> Suspect arm lead reversal, interpretation assumes no reversal Normal sinus rhythm Right axis deviation Pulmonary disease pattern Inferior infarct, age undetermined Abnormal ECG
== END 2018-04-18 20:03 | disposition short-term general hospital (02) | DRG 562 ==
LOC: ED 15:08 → ERH 18:13 → 2RNO 04-18 01:50 → 2RSO 04-18 14:10
PROVIDERS: ADMIT Hospitalist; ATTEND Hospitalist
PROC: 0QSKXZZ Reposition Left Fibula, External Approach (ICD-10-PCS; principal; 2018-04-17)
PROC: 0QSHXZZ Reposition Left Tibia, External Approach (ICD-10-PCS; 2018-04-17)
PROC: 2W3RX1Z Immobilization of Left Lower Leg using Splint (ICD-10-PCS; 2018-04-17)
PROC: 4A023N7 Measurement of Cardiac Sampling and Pressure, Left Heart, Percutaneous Approach (ICD-10-PCS; 2018-04-18)
PROC: B2151ZZ Fluoroscopy of Left Heart using Low Osmolar Contrast (ICD-10-PCS; 2018-04-18)
PROC: B2111ZZ Fluoroscopy of Multiple Coronary Arteries using Low Osmolar Contrast (ICD-10-PCS; 2018-04-18)
DX: S82.852A Displaced trimalleolar fracture of left lower leg, initial encounter for closed fracture (principal); I21.4 Non-ST elevation (NSTEMI) myocardial infarction; I25.10 Atherosclerotic heart disease of native coronary artery without angina pectoris; F81.9 Developmental disorder of scholastic skills, unspecified; W00.0XXA Fall on same level due to ice and snow, initial encounter; Y93.01 Activity, walking, marching and hiking; Y92.093 Driveway of other non-institutional residence as the place of occurrence of the external cause; Z82.49 Family history of ischemic heart disease and other diseases of the circulatory system; X50.1XXA Overexertion from prolonged static or awkward postures, initial encounter